=== PATIENT | male | born 1960 | race Caucasian/White ===

== ENCOUNTER 2016-07-05 20:06 | Inpatient (IN) | payer OTHER ==
[~2016-07-05] VITALS: Ht 188 cm; Wt 89.4 kg
--- NOTE | ~2016-07-05 | EKG ---
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
--- NOTE | ~2016-07-05 | EKG ---
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
[2016-07-05 20:15] VITALS: BP 145/93
[2016-07-05] MEDS ORDERED: LIPITOR10 MG PO (20:17)
[2016-07-05] MEDS ORDERED: CRESTOR10 MG PO (20:17)
[2016-07-05] MEDS ORDERED: ASPIR 8181 MG PO (20:18)
[2016-07-05] MEDS ORDERED: POTASSIUM20 PO (20:18)
[2016-07-05] MEDS ORDERED: CENTRUM SILVER1 EAC2 PO (20:18)
[2016-07-05] MEDS ORDERED: SYNTHROID150 MCG PO (20:19)
[2016-07-05 20:49] LABS: ABSOLUTE NEUTROPHILS 2.5 thou/uL (1.4-8.2); BASOPHILS 0.6 % (0.0-2.0); EOSINOPHILS 4.6 % (0.0-3.0); HEMATOCRIT 43.6 % (42.0-52.0); HEMOGLOBIN 14.9 gm/dL (14.0-18.0); LYMPHOCYTES 22.4 % (24.0-44.0); MCH 34.5 pg (26.0-34.0); MCHC 34.1 g/dL (28.0-37.0); MCV 101.2 fL (80.0-100.0); MONOCYTES 10.5 % (1.0-8.0); PLATELET COUNT 197 thou/uL (150-400); POLYS 61.9 % (36.0-66.0); RBC 4.31 mil/uL (4.50-6.00); RDW 13.5 % (10.5-14.5); WBC 4.1 thou/uL (4.0-11.0)
[2016-07-05 20:50] LABS: MANUAL DIFF NO
[2016-07-05 21:10] LABS: ALBUMIN 3.8 g/dL (3.4-5.0); ALKALINE PHOSPHATASE 77 U/L (46-116); ANION GAP 10 mmol/L (7-16); BUN 16 mg/dL (7-18); CALCIUM 8.8 mg/dL (8.5-10.1); CHLORIDE 105 mmol/L (98-107); CO2 26 mmol/L (21-32); CREATININE 1.2 mg/dL (0.6-1.3); DIRECT BILIRUBIN 0.1 mg/dL (<0.1-0.3); GLUCOSE 106 mg/dL (70-99); NT-PRO BRAIN NAT PEPTIDE 57 pg/mL (<300); POTASSIUM 4.1 mmol/L (3.5-5.1); SGOT 26 U/L (15-37); SGPT 49 U/L (30-65); SODIUM 141 mmol/L (136-145); TOTAL BILIRUBIN 0.5 mg/dL (<0.1-1.0); TOTAL PROTEIN 7.3 g/dL (6.4-8.2); TROPONIN-I < 0.04 ng/mL (<0.04-0.07)
[2016-07-05] MEDS ORDERED: [UNRECOGNIZED DRUG - OTHER] PO (22:14)
[2016-07-05] MEDS ORDERED: PRILOSEC2.5 MG PO (22:14)
[2016-07-05 22:30] VITALS: BP 137/79
[2016-07-05 22:36] VITALS: BP 128/74
[2016-07-06 03:16] LABS: CHOLESTEROL 92 mg/dL (<200); HDL CHOLESTEROL 20 mg/dL (>40); LDL CHOLESTEROL 42 mg/dL (<100); TC:HDL 4.6 Ratio (Not establshd); TRIGLYCERIDE 151 mg/dL (<150); VLDL 30 mg/dL (<40)
[2016-07-06 03:42] VITALS: BP 139/93
[2016-07-06 07:39] VITALS: BP 158/93
[2016-07-06 11:14] VITALS: BP 136/83
[2016-07-06 15:19] VITALS: BP 148/83
[2016-07-06 20:00] VITALS: BP 149/93
== END 2016-07-07 00:10 | disposition left against medical advice (07) | DRG 190 ==
LOC: ER 20:06 → EROBS 21:55 → 4W 21:55
PROVIDERS: Nurse Practitioner; Physician Assistant
DX: J44.1 Chronic obstructive pulmonary disease with (acute) exacerbation (principal); B20 Human immunodeficiency virus [HIV] disease; F17.210 Nicotine dependence, cigarettes, uncomplicated; F12.90 Cannabis use, unspecified, uncomplicated; E03.9 Hypothyroidism, unspecified; Z53.21 Procedure and treatment not carried out due to patient leaving prior to being seen by health care provider; E78.5 Hyperlipidemia, unspecified; Z91.09 Other allergy status, other than to drugs and biological substances; I25.2 Old myocardial infarction; Z71.6 Tobacco abuse counseling
CPT/HCPCS: 10045

== ENCOUNTER 2017-05-27 08:52 | Emergency (ER) | payer OTHER ==
[~2017-05-27] VITALS: Ht 182.9 cm; Wt 90.7 kg
[~2017-05-27 08:52] MED LIST: ASPIR 8181 MG PO; CENTRUM SILVER1 EAC2 PO; CRESTOR10 MG PO; LIPITOR10 MG PO; POTASSIUM20 PO; PRILOSEC2.5 MG PO; SYNTHROID150 MCG PO; [UNRECOGNIZED DRUG - OTHER] PO
[2017-05-27] MEDS ORDERED: PENICILLIN VK500 M1 PO (09:28)
[2017-05-27] MEDS ORDERED: MOBIC15 MG PO (09:28)
[2017-05-27 09:53] VITALS: BP 122/91
== END 2017-05-27 09:54 | disposition home or self-care (01) ==
LOC: ER 08:52
DX: K02.9 Dental caries, unspecified (principal); Z87.891 Personal history of nicotine dependence; Z88.8 Allergy status to other drugs, medicaments and biological substances